=== PATIENT | male | born 1935 | race Caucasian/White ===

== ENCOUNTER 2017-09-08 06:21 | Emergency (ER) | payer OTHER ==
[~2017-09-08] VITALS: Ht 175.3 cm; Wt 107.7 kg
[~2017-09-08 06:21] MED LIST: AMARYL2 MG PO; ASPIR-LOW81 MG PO; ASPIRIN EC325 MG PO; BENAZEPRIL HCL40 MG PO; CLOTRIMAZOLE-BE15 GM TP; COLACE100 MG PO; COLACE50 MG PO; FLONASE16 G1 BOTH NARES; GLIMEPIRIDE2 MG PO; GLUCOPHAGE500 MG PO; LOTENSIN20 MG PO; LOTRISONE15 GM TP; METFORMIN HCL500 MG PO; METOPROLOL SUCC50 MG PO; PERCOCET 5/31 TABLET PO; PRILOSEC40 MG PO; SIMVASTATIN20 MG PO; TRAMADOL HCL50 MG PO; TUSSIONEX PENN473 ML PO; TYLENOL REGULA325 MG PO; ZANTAC150 MG PO; ZIAC 10/6.251 TABLET PO; ZITHROMAX500 MG PO; ZOCOR20 MG PO; ZOFRAN4 MG PO
[2017-09-08 10:31] LABS: HEMATOCRIT 45.1 % (38.0-50.0); MCH 30.7 PG (29.0-34.0); MCHC 35.3 G/DL (30.0-36.0); MCV 87.1 FL (86-99); MEAN PLAT.VOLUME 9.9 uM^3 (9.0-12.4); PLATELET COUNT 249 K/uL (156-360); RBC DIS.WIDTH-CV 12.6 % (11.8-14.6); RED BLOOD COUNT 5.18 M/uL (4.00-5.50); WHITE BLOOD COUNT 9.1 K/uL (4.1-10.2)
[2017-09-08 10:57] LABS: ANION GAP 10 MEQ/L (2-14); CHLORIDE 106 MEQ/L (99-109); POTASSIUM 4.4 MEQ/L (3.7-5.4); SAMPLE HEMOLYSIS CHECK 0; SAMPLE ICTERIC CHECK 0; SAMPLE LIPEMIA CHECK 0; SODIUM 138 MEQ/L (136-147)
[2017-09-08 11:02] LABS: GFR ESTIMATE (CALCULATED) > 59 mL/min/; GLUCOSE 108 mg/dL (70-99); UREA NITROGEN (BUN) 15 mg/dL (9-23)
[2017-09-08] MEDS ORDERED: PROVENTIL,2.5 MG/3 M IH (12:03)
[2017-09-08 12:47] VITALS: BP 120/67
== END 2017-09-08 12:50 | disposition home or self-care (01) ==
LOC: EME 06:21
PROVIDERS: Nurse Practitioner Family
DX: J06.9 Acute upper respiratory infection, unspecified (principal); J44.9 Chronic obstructive pulmonary disease, unspecified; K21.9 Gastro-esophageal reflux disease without esophagitis; E78.5 Hyperlipidemia, unspecified; I10 Essential (primary) hypertension; E11.9 Type 2 diabetes mellitus without complications; Z95.1 Presence of aortocoronary bypass graft; Z96.651 Presence of right artificial knee joint; Z79.84 Long term (current) use of oral hypoglycemic drugs; Z79.82 Long term (current) use of aspirin; Z88.8 Allergy status to other drugs, medicaments and biological substances
CPT/HCPCS: 71020; 80048; 85027; 87502; 94640; 99281; 99284